=== PATIENT | female | born 1965 | race Caucasian/White ===

== ENCOUNTER 2021-11-22 12:54 | Emergency (ER) | payer MEDICARE, MEDICAID ==
[2021-11-22 13:32] VITALS: BP 145/86
[2021-11-22 14:02] LABS: HEMATOCRIT 43.9 % (37.0-47.0); HEMOGLOBIN 14.4 g/dl (12.0-16.0); IMMATURE GRANULOCYTES 0.3 % (0.0-5.0); MEAN CELL VOLUME 94.6 fL CALC (80.0-100.0); MEAN CORPUSCULAR HGB CONC 32.8 g/dL CAL (32.0-36.0); NEUT# 4.57 thou/uL (2.00-7.15); RED BLOOD COUNT 4.64 mill/uL (4.20-5.60); RED CELL DISTRI WIDTH 13.6 % (11.5-15.5)
[2021-11-22 14:22] LABS: ALBUMIN 4.3 g/dL (3.2-5.0); ALKALINE PHOSPHATASE 60 u/l (38-126); ANION GAP 15 (6-22 (CALC)); BILIRUBIN, TOTAL 0.6 mg/dL (0.0-1.4); BUN 12 mg/dL (7-17); BUN/CREATININE RATIO 21 (12-20 (CALC)); CARBON DIOXIDE 22 mmol/l (22-30); CHLORIDE 103 mmol/l (95-108); CREATININE 0.6 mg/dL (0.5-1.0); GFR FOR AFR.AMER. > 60 ML/MIN (>=60 (CALC)); GFR OTHER RACES > 60 ML/MIN (>=60 (CALC)); SGOT/AST 50 u/l (14-36); SODIUM 137 mmol/l (137-146); TOTAL PROTEIN 7.4 g/dL (6.3-8.2)
[2021-11-22 15:32] LABS: URINE BILIRUBIN - DIPSTICK NEGATIVE (NEGATIVE); URINE BLOOD DIPSTICK SMALL (NEGATIVE); URINE COLOR YELLOW; URINE GLUCOSE - DIPSTICK NEGATIVE (NEGATIVE); URINE KETONE NEGATIVE (NEGATIVE); URINE LEUK ESTERASE NEGATIVE (NEGATIVE); URINE PROTEIN - DIPSTICK NEGATIVE (NEG-TRACE); URINE UROBILINOGEN - DIPSTICK 0.2 E.U./dL (0.2)
[2021-11-22 15:35] LABS: URINE NITRITE - DIPSTICK NEGATIVE (Negative)
[2021-11-22 15:40] LABS: URINE RBC 0-2 RBC/hpf (0-5)
[2021-11-22] MEDS ORDERED: MEDDOSEPAK PO (16:11)
[2021-11-22] MEDS ORDERED: ZPAK PO (16:11)
[2021-11-22] MEDS ORDERED: VENTOLIN HFA108 MCG IN (16:11)
[2021-11-22 16:24] VITALS: BP 119/55
[2021-11-22 16:30] VITALS: BP 121/61
[2021-11-22 16:45] VITALS: BP 121/66
[2021-11-22 17:01] VITALS: BP 121/61
== END 2021-11-22 17:02 | disposition home or self-care (01) ==
LOC: ED 12:54
PROVIDERS: Nurse Practitioner
DX: J44.1 Chronic obstructive pulmonary disease with (acute) exacerbation (principal); J06.9 Acute upper respiratory infection, unspecified; Z20.822 Contact with and (suspected) exposure to COVID-19; Z86.16 Personal history of COVID-19

== ENCOUNTER 2022-09-28 14:37 | Emergency (ER) | payer MEDICARE, MEDICAID ==
[~2022-09-28] VITALS: Ht 170.2 cm; Wt 52.3 kg
[2022-09-28] VITALS (14 sets, daily range): BP systolic 135–161; BP diastolic 49–93
[~2022-09-28 14:37] MED LIST: MEDDOSEPAK PO; VENTOLIN HFA108 MCG IN; ZPAK PO
[2022-09-28] MEDS ORDERED: ROXICODONE15 M1 PO (15:08)
[2022-09-28] MEDS ORDERED: AMLODIPINE BESYL5 MG PO (15:08)
[2022-09-28] MEDS ORDERED: PROTONIX40 M2 PO ×2 (15:08→18:21)
[2022-09-28 15:20] LABS: URINE BLOOD DIPSTICK Moderate (NEGATIVE); URINE COLOR Yellow; URINE GLUCOSE - DIPSTICK Negative (NEGATIVE); URINE KETONE Trace mg/dL (NEGATIVE); URINE LEUK ESTERASE Negative (NEGATIVE); URINE NITRITE - DIPSTICK Negative (Negative); URINE PH 5.5 (4.5-8.0); URINE PROTEIN - DIPSTICK 30 mg/dL (NEG-TRACE); URINE SPECIFIC GRAVITY >=1.030; URINE UROBILINOGEN - DIPSTICK 0.2 E.U./dL (0.2)
[2022-09-28 15:29] LABS: BASO% 1.1 % (0-3); EOS% 0.8 % (0-8); HEMATOCRIT 39.7 % (37.0-47.0); HEMOGLOBIN 12.8 g/dl (12.0-16.0); IMMATURE GRANULOCYTES 0.2 % (0.0-5.0); LYMPH% 23.1 % (15-41); MEAN CELL VOLUME 95.2 fL CALC (80.0-100.0); MEAN CORPUSCULAR HGB 30.7 pG CALC (26.0-32.0); MEAN CORPUSCULAR HGB CONC 32.2 g/dL CAL (32.0-36.0); NEUT# 4.08 thou/uL (2.00-7.15); NEUT% 66.8 % (42-76); RED BLOOD COUNT 4.17 mill/uL (4.20-5.60); RED CELL DISTRI WIDTH 11.6 % (11.5-15.5)
[2022-09-28 15:32] LABS: URINE MUCUS MODERATE hpf (NONE-FEW); URINE SQUAMOUS EPITHELIAL CELL MODERATE EPI/hpf (0-FEW)
[2022-09-28 15:41] LABS: ALKALINE PHOSPHATASE 65 u/l (38-126); ANION GAP 13 (6-22 (CALC)); BILIRUBIN, TOTAL 0.6 mg/dL (0.02-1.3); BUN 9 mg/dL (7-17); BUN/CREATININE RATIO 13 (12-20 (CALC)); CARBON DIOXIDE 24 mmol/l (22-30); CHLORIDE 106 mmol/l (95-108); CREATININE 0.6 mg/dL (0.5-1.0); GFR FOR AFR.AMER. > 60 ML/MIN (>=60 (CALC)); GFR OTHER RACES > 60 ML/MIN (>=60 (CALC)); LIPASE 154 u/l (23-300); POTASSIUM 3.9 mmol/l (3.5-5.1); SGOT/AST 54 u/l (14-36); SODIUM 139 mmol/l (137-146); TOTAL PROTEIN 8.4 g/dL (6.3-8.2)
[2022-09-28] MEDS ORDERED: ZOFRAN4 MG/TAB PO (18:21)
[2022-09-28] MEDS ORDERED: PROMETHAZINE HY25 M1 PO (18:21)
== END 2022-09-28 18:54 | disposition home or self-care (01) ==
LOC: ED 14:37
PROVIDERS: Nurse Practitioner
DX: K52.9 Noninfective gastroenteritis and colitis, unspecified (principal); J44.9 Chronic obstructive pulmonary disease, unspecified

== ENCOUNTER 2022-11-05 10:02 | Emergency (ER) | payer MEDICARE, MEDICAID ==
[~2022-11-05] VITALS: Ht 170.2 cm; Wt 55.0 kg
[~2022-11-05 10:02] MED LIST changes: +AMLODIPINE BESYL5 MG PO; +PROMETHAZINE HY25 M1 PO; +PROTONIX40 M2 PO; +ROXICODONE15 M1 PO; +ZOFRAN4 MG/TAB PO
[2022-11-05 10:13] VITALS: BP 143/81
[2022-11-05 10:20] VITALS: BP 124/77
[2022-11-05] MEDS ORDERED: CARAFATE1 GM PO (10:22)
[2022-11-05] MEDS ORDERED: ALPRAZOLAM2 M1 PO (10:23)
[2022-11-05 10:31] VITALS: BP 127/102
[2022-11-05 11:22] VITALS: BP 142/68
[2022-11-05 11:30] VITALS: BP 134/75
[2022-11-05] MEDS ORDERED: TRAMADOL HYDROC50 M1 PO (11:33)
[2022-11-05 11:37] VITALS: BP 134/75
== END 2022-11-05 11:45 | disposition home or self-care (01) ==
LOC: ED 10:02
DX: M54.50 Low back pain, unspecified (principal); I10 Essential (primary) hypertension; J44.9 Chronic obstructive pulmonary disease, unspecified